=== PATIENT | female | born 1985 ===

== ENCOUNTER 2019-11-21 16:23 | Observation (INO) | payer BC ==
[2019-11-21] MEDS ORDERED: Sodium Chloride 0.9% 1,000 ML IV ONE ×2 (16:40→19:12)
--- NOTE | 2019-11-21 16:57 | EDM.PDOC ---
ED HPI GENERAL MEDICAL PROBLEM - General Chief Complaint: Genitourinary Problem Stated Complaint: POSSIBLE UTI Time Seen by Provider: 11/21/19 16:24 Source of Information: Reports: Patient History Limitations: Reports: No Limitations - History of Present Illness INITIAL COMMENTS - FREE TEXT/NARRATIVE: HISTORY AND PHYSICAL: History of present illness: Patient is a 34-year-old female who presents to the emergency room today with complaints of dysuria, weakness, malaise and noticing that her eyes were jaundiced this morning. Patient states she has had UTI-like symptoms for over a week and had seen Dr. Roldan last Tuesday for UA/STD testing. Initially her urine showed no infection but the culture did recommend that she be placed on antibiotics. She was started on Macrobid and is currently taking this antibiotic, but does not feel like she is improving as expected. Her STD screening was negative (per patient). Since Tuesday (4 days since starting the abx) she has felt generalized weakness, feeling like she could pass out, generalized abdominal bloating, and fatigue. This morning while applying her make-up she noticed her sclera were jaundiced bilaterally. She does recall having elevated LFTs approximately 3 to 5 years ago, at that time they were concerned it might be related to her gallbladder. She does remember getting a HIDA scan and this had eventually resolved on its own. She states she does drink occasionally but not on a daily basis, most recently was this last when she had gone to a [employer] [place]. Patient denies any f ever, chills, headache, change in vision, syncope or near syncope. Denies any chest pain, back pain, shortness of breath or cough. Denies any nausea, vomiting, diarrhea, constipation, or chance of . Patient has been eating and drinking appropriately. Review of systems: As per history of present illness and below otherwise all systems reviewed and negative. Past medical history: As per history of present illness and as reviewed below otherwise noncontributory. Surgical history: As per history of present illness and as reviewed below otherwise noncontributory. Social history: See social history for further information Family history: As per history of present illness and as reviewed below otherwise noncontributory. Physical exam: General: Well-developed and well-nourished 34-year-old female. Alert and oriented. Nontoxic-appearing and in no acute distress. HEENT: Atraumatic, normocephalic, pupils equal and reactive bilaterally, negative for conjunctival pallor, + bilateral scleral icterus, mucous membranes moist, TMs normal bilaterally, throat clear, neck supple, nontender, trachea midline. No drooling or trismus noted. No meningeal signs. No hot potato voice noted. Lungs: Clear to auscultation, breath sounds equal bilaterally, chest nontender. Heart: S1S2, regular rate and rhythm without overt murmur Abdomen: Soft, mildly distended, epigastric tenderness. Negative for masses or costovertebral tenderness. Pelvis: Stable nontender. Skin: Intact, warm, dry. No lesions or rashes noted. Extremities: Atraumatic, moves all extremities per self without difficulty or deficits, negative for cords or calf pain. Neurovascular unremarkable. Neuro: Awake, alert, oriented. Cranial nerves II through XII unremarkable. Cerebellum unremarkable. Motor and sensory unremarkable throughout. Exam nonfocal. Notes: Patient's total bili is 5.0, she did have one approximately a year ago which was 1.6. Her AST and ALT are slightly elevated. Normal amylase and lipase. No white count at this time. Did do a CT of her abdomen and pelvis which shows a fatty infiltration within the liver, generous in size. Spleen shows a low- density lesion which is compatible with a small cyst. Gallbladder is unremarkable. No acute findings are noted. I did call the hospitalist, Dr Shipley, who is agreeable to accepting this patient for further care and management. We did discuss possibly doing an MRCP tomorrow. Patient was made aware of diagnostic findings and the need for further evaluation. She is agreeable to admission. Diagnostics: CBC, CMP, UA, HCGU, [place], CT abd/pelvis, Hepatitis panel, lipase, amylase Therapeutics: IV fluids, Rocephin Impression: Hyperbilirubinemia, unknown etiology UTI Plan: Observation admission. Definitive disposition and diagnosis as appropriate pending reevaluation and review of above. - Related Data Allergies Allergy/AdvReac Type Severity Reaction Status Date / Time No Known Allergies Allergy Verified 11/21/19 16:32 Home Meds: Home Meds Sertraline [Zoloft] 100 mg PO BEDTIME 10/15/14 [History] L.acidoph,Paracasei, B.lactis [Probiotic] 1 cap PO DAILY 11/21/19 [History] Multivitamin [Multivitamins] 1 tab PO DAILY 11/21/19 [History] Omeprazole Magnesium [Prilosec Otc] 1 tab PO DAILY 11/21/19 [History] Past Medical History [employer] History: Reports: Psychiatric History: Reports: Anxiety, Depression - Past Surgical History HEENT Surgical History: Reports: Oral Surgery Other HEENT Surgeries/Procedures: sinus surgery Social & Family History - Family History Family Medical History: Noncontributory - Tobacco Use Smoking Status *Q: Never Smoker - Recreational Drug Use Recreational Drug Use: No ED ROS GENERAL - Review of Systems Review Of Systems: Comprehensive ROS is negative, except as noted in HPI. ED EXAM, RENAL/ - Physical Exam Exam: See Below (See dictation) Course - Vital Signs Last Recorded V/S: Last Vital Signs Temp 97.2 F 11/21/19 16:29 Pulse 74 11/21/19 18:49 Resp 16 11/21/19 18:49 BP 111/77 11/21/19 18:49 Pulse Ox 96 11/21/19 18:49 - Orders/Labs/Meds Orders: Active Orders 24 hr Category Date Time Status Admission Status [Patient Status] [ADT] Stat ADT 11/21/19 19:09 Ordered CULTURE URINE [RM] Stat Lab 11/21/19 16:41 Received HEPATITIS PANEL (4) [REF] Stat Lab 11/21/19 17:42 Received Labs: Laboratory Tests 11/21/19 11/21/19 11/21/19 Range/Units 16:41 16:41 17:00 WBC 4.49 (4.0-11.0) K/uL RBC 3.51 L (4.30-5.90) M/uL Hgb 11.9 L (12.0-16.0) g/dL Hct 35.9 L (36.0-46.0) % MCV 102.3 H (80.0-98.0) fL MCH 33.9 H (27.0-32.0) pg MCHC 33.1 (31.0-37.0) g/dL RDW Std Deviation 45.2 (28.0-62.0) fl RDW Coeff of Lulu 12 (11.0-15.0) % Plt Count 212 (150-400) K/uL MPV 9.60 (7.40-12.00) fL Neut % (Auto) 48.7 (48.0-80.0) % Lymph % (Auto) 29.0 (16.0-40.0) % [place] % (Auto) 7.6 (0.0-15.0) % Eos % (Auto) 14.3 H (0.0-7.0) % Baso % (Auto) 0.4 (0.0-1.5) % Neut # (Auto) 2.2 (1.4-5.7) K/uL Lymph # (Auto) 1.3 (0.6-2.4) K/uL [place] # (Auto) 0.3 (0.0-0.8) K/uL Eos # (Auto) 0.6 (0.0-0.7) K/uL Baso # (Auto) 0.0 (0.0-0.1) K/uL Nucleated RBC % 0.0 /100WBC Nucleated RBCs # 0 K/uL Sodium (136-145) mmol/L Potassium (3.5-5.1) mmol/L Chloride (98-107) mmol/L Carbon Dioxide (21.0-32.0) mmol/L BUN (7.0-18.0) mg/dL Creatinine (0.6-1.0) mg/dL Est Cr Clr Drug Dosing mL/min Estimated GFR (MDRD) ml/min Glucose (74-106) mg/dL Calcium (8.5-10.1) mg/dL Total Bilirubin (0.2-1.0) mg/dL AST (15-37) IU/L ALT (14-63) IU/L Alkaline Phosphatase (46-116) U/L Total Protein (6.4-8.2) g/dL Albumin (3.4-5.0) g/dL Globulin (2.6-4.0) g/dL Albumin/Globulin Ratio (0.9-1.6) Amylase (25-115) U/L Lipase (73-393) U/L Urine Color YELLOW Urine Appearance CLEAR Urine pH 6.0 (5.0-8.0) Ur Specific [place] 1.025 (1.001-1.035) Urine Protein NEGATIVE (NEGATIVE) mg/dL Urine Glucose (UA) NEGATIVE (NEGATIVE) mg/dL Urine Ketones NEGATIVE (NEGATIVE) mg/dL Urine Occult Blood NEGATIVE (NEGATIVE) Urine Nitrite NEGATIVE (NEGATIVE) Urine Bilirubin MODERATE H (NEGATIVE) Urine Ictotest POSITIVE Urine Urobilinogen 1.0 (<2.0) EU/dL Ur Leukocyte Esterase SMALL H (NEGATIVE) Urine RBC 0-2 (0-2/HPF) Urine WBC 1-3 (0-5/HPF) Ur Epithelial Cells FEW (NONE-FEW) Urine Bacteria FEW (NEGATIVE) Urine HCG, Qual NEGATIVE (NEGATIVE) Monoscreen (NEG) 11/21/19 11/21/19 11/21/19 Range/Units 17:00 17:00 17:42 WBC (4.0-11.0) K/uL RBC (4.30-5.90) M/uL Hgb (12.0-16.0) g/dL Hct (36.0-46.0) % MCV (80.0-98.0) fL MCH (27.0-32.0) pg MCHC (31.0-37.0) g/dL RDW Std Deviation (28.0-62.0) fl RDW Coeff of Lulu (11.0-15.0) % Plt Count (150-400) K/uL MPV (7.40-12.00) fL Neut % (Auto) (48.0-80.0) % Lymph % (Auto) (16.0-40.0) % [place] % (Auto) (0.0-15.0) % Eos % (Auto) (0.0-7.0) % Baso % (Auto) (0.0-1.5) % Neut # (Auto) (1.4-5.7) K/uL Lymph # (Auto) (0.6-2.4) K/uL [place] # (Auto) (0.0-0.8) K/uL Eos # (Auto) (0.0-0.7) K/uL Baso # (Auto) (0.0-0.1) K/uL Nucleated RBC % /100WBC Nucleated RBCs # K/uL Sodium 137 (136-145) mmol/L Potassium 4.0 (3.5-5.1) mmol/L Chloride 103 (98-107) mmol/L Carbon Dioxide 23.1 (21.0-32.0) mmol/L BUN 12 (7.0-18.0) mg/dL Creatinine 0.8 (0.6-1.0) mg/dL Est Cr Clr Drug Dosing 81.19 mL/min Estimated GFR (MDRD) > 60.0 ml/min Glucose 126 H (74-106) mg/dL Calcium 8.5 (8.5-10.1) mg/dL Total Bilirubin 5.0 H (0.2-1.0) mg/dL AST 66 H (15-37) IU/L ALT 143 H (14-63) IU/L Alkaline Phosphatase 168 H (46-116) U/L Total Protein 7.5 (6.4-8.2) g/dL Albumin 3.8 (3.4-5.0) g/dL Globulin 3.7 (2.6-4.0) g/dL Albumin/Globulin Ratio 1.0 (0.9-1.6) Amylase 52 (25-115) U/L Lipase 122 (73-393) U/L Urine Color Urine Appearance Urine pH (5.0-8.0) Ur Specific [place] (1.001-1.035) Urine Protein (NEGATIVE) mg/dL Urine Glucose (UA) (NEGATIVE) mg/dL Urine Ketones (NEGATIVE) mg/dL Urine Occult Blood (NEGATIVE) Urine Nitrite (NEGATIVE) Urine Bilirubin (NEGATIVE) Urine Ictotest Urine Urobilinogen (<2.0) EU/dL Ur Leukocyte Esterase (NEGATIVE) Urine RBC (0-2/HPF) Urine WBC (0-5/HPF) Ur Epithelial Cells (NONE-FEW) Urine Bacteria (NEGATIVE) Urine HCG, Qual (NEGATIVE) Monoscreen NEGATIVE (NEG) Meds: Medications Discontinued Medications Generic Name Dose Route Start Last Admin Trade Name Freq PRN Reason Stop Dose Admin Sodium Chloride 1,000 mls @ 999 mls/hr 11/21/19 16:40 11/21/19 16:57 Normal Saline IV 11/21/19 17:40 999 mls/hr STAT ONE Administration Iopamidol 100 ml 11/21/19 18:29 11/21/19 18:30 Isovue-370 (76%) IVPUSH 11/21/19 18:30 100 ml ONETIME STA Administration Departure - Departure Time of Disposition: 19:11 Disposition: Refer to Observation Clinical Impression: Hyperbilirubinemia UTI (urinary tract infection) Qualifiers: Urinary tract infection type: site unspecified Hematuria presence: without hematuria Qualified Code(s): N39.0 - Urinary tract infection, site not specified - Discharge Information Referrals: Pau Roldan MD [Primary Care Provider] - Forms: ED Department Discharge Sepsis Event Note (ED) - Evaluation Sepsis Screening Result: No Definite Risk - Focused Exam Vital Signs: Vital Signs Temp Pulse Resp BP Pulse Ox 11/21/19 18:49 74 16 111/77 96 11/21/19 16:29 97.2 F 82 16 120/80 96 - My Orders Last 24 Hours: My Active Orders 11/21/19 16:41 CULTURE URINE [RM] Stat 11/21/19 17:42 HEPATITIS PANEL (4) [REF] Stat 11/21/19 19:09 Admission Status [Patient Status] [ADT] Stat - Assessment/Plan Last 24 Hours: My Active Orders 11/21/19 16:41 CULTURE URINE [RM] Stat 11/21/19 17:42 HEPATITIS PANEL (4) [REF] Stat 11/21/19 19:09 Admission Status [Patient Status] [ADT] Stat
[2019-11-21 17:28] LABS: BLOOD UREA NITROGEN,BUN 12 mg/dL (7.0-18.0); CARBON DIOXIDE,CO2 23.1 mmol/L (21.0-32.0); CHLORIDE,CL 103 mmol/L (98-107); GLUCOSE RANDOM 126 mg/dL (74-106); SODIUM,NA 137 mmol/L (136-145)
[2019-11-21] MEDS ORDERED: Iopamidol 755 Mg/ML 100 ML Bottle IVPUSH STA (18:29)
[2019-11-21 18:38] LABS: LIPASE 122 U/L (73-393)
--- NOTE | 2019-11-21 18:57 | CT ---
CT abdomen and pelvis Technique: Multiple axial sections were obtained from above the dome of the diaphragm inferiorly to the pubic symphysis. Intravenous contrast was utilized. No oral contrast has been given. Findings: Visualized lung bases show nothing acute. Liver shows diffuse fatty infiltration. Liver is also generous in size. Spleen shows a low density lesion which is felt compatible with small cyst. Spleen size is normal. Adrenal glands show no nodule. Pancreas is within normal limits. Gallbladder contains no calcified gallstones. Kidneys show symmetric contrast enhancement without hydronephrosis. Small cyst is noted within the right kidney measuring 7 mm. Aorta shows no aneurysm. No retroperitoneal adenopathy is seen. No mesenteric abnormalities are noted. Small fat-containing umbilical hernia is noted. Appendix is seen and is normal in size. No pelvic mass or adenopathy is seen. IUD is present within the uterus. No free fluid or inflammatory change is seen. Bone window settings were reviewed which show no acute osseous finding. Impression: 1. Fatty infiltration within the liver. Liver is also generous in size. Other findings as noted above. 2. No acute abnormality is appreciated. Diagnostic code #2 Study was dictated in MDT
[2019-11-21] MEDS ORDERED: cefTRIAXone 1 GM in Premix Bag 1 BAG IV ONE (19:12)
[2019-11-21] MEDS ORDERED: Morphine 2 MG/ML Syringe IVPUSH PRN (20:52)
[2019-11-21] MEDS ORDERED: Ondansetron 4 MG/2 ML SDV IVPUSH PRN (20:52)
[2019-11-21] MEDS ORDERED: Albuterol/Ipratropium 3.0-0.5 MG/3 ML Neb Soln NEB PRN (20:54)
[2019-11-21] MEDS ORDERED: Lactated Ringers 1,000 ML IV SCH (21:00)
--- NOTE | 2019-11-21 21:03 | PCM.HP.2 ---
H&P History of Present Illness - General Date of Service: 11/21/19 Admit Problem/Dx: Admission Diagnosis/Problem Admission Diagnosis/Problem Hyperbilirubinemia - History of Present Illness Initial Comments - Free Text/Narative: Patient is a 34-year-old female with PMH of remote h/o liver dysfunction, obesity who presents to the emergency room today with complaints of mild dysuria, weakness, malaise and noticing that her eyes were jaundiced when she was applying make up this morning. Patient was treated for UTI by her OBGYN and started on Macrobid on Tuesday, states yesterday they called and changed her antibiotics based on cultures to Ampicillin. Her STD screening was negative (pe r patient). since starting her antibiotics she felt generalized weakness, generalized abdominal bloating, and fatigue. She does recall having elevated LFTs approximately 3 to 5 years ago, at that time they were concerned it might be related to her gallbladder. She does remember getting a HIDA scan and this had eventually resolved on its own. She states she does drink occasionally but not on a daily basis, most recently was this last weekend when she had gone to a [employer] republic[place], when she drank more than her usual but "nothing crazy", c/o vague chest pressure, but Patient denies any fever, chills, headache, change in vision, syncope or near syncope. denied back pain, shortness of breath or cough. Denies any nausea, vomiting, diarrhea, constipation, or chance of . Patient has been eating and drinking appropriately. In the ER patient was found to have elevated liver enzymes, CT scan of the abdomen showed hepatomegaly and fatty infiltration of liver. Dr Wilson was consulted by ER, recommended possible MRCP in AM, medical management for now. Patient was admitted to hospital for further care. 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: Psychiatric History: Reports: Anxiety, Depression - Infectious Disease History Infectious Disease History: Reports: Chicken Pox - Past Surgical History HEENT Surgical History: Reports: Oral Surgery Other HEENT Surgeries/Procedures: sinus surgery Social & Family History - Family History Family Medical History: Noncontributory - Tobacco Use Smoking Status *Q: Never Smoker Second Hand Smoke Exposure: No - Caffeine Use Caffeine Use: Reports: Other Other Caffeine Use: Diet Coke - Alcohol Use Number of Drinks Per Day: 6 Date of Last Drink: 11/17/19 - Recreational Drug Use Recreational Drug Use: No H&P Review of Systems - Review of Systems: Review Of Systems: See Below General: Reports: Malaise, Weakness, Fatigue. Denies: Fever, Chills HEENT: Denies: Dysphasia, Ear Pain Pulmonary: Denies: Shortness of Breath, Wheezing, Pleuritic Chest Pain Cardiovascular: Denies: Chest Pain, Palpitations, Dyspnea on Exertion, Edema, Lightheadedness, Syncope Gastrointestinal: Reports: Anorexia, Decreased Appetite, Nausea. Denies: Abdominal Pain, Black Stool, Bloody Stool, Constipation, Diarrhea Genitourinary: Reports: Dysuria, Urgency. Denies: Burning, Pain Musculoskeletal: Denies: Neck Pain, Shoulder Pain, Arm Pain Exam - Exam Exam: See Below - Vital Signs Vital Signs: Last Vital Signs Temp 36.9 C 11/21/19 20:05 Pulse 73 11/21/19 20:05 Resp 16 11/21/19 20:05 BP 140/83 11/21/19 20:05 Pulse Ox 97 11/21/19 20:05 Weight: 80.3 kg - Exam General: Alert, Oriented, Cooperative HEENT: Mucosa Moist & Jeannette, Nares Patent, Scleral Icterus. No: Conjunctiva Clear, Abnormal Pupils, Rhinitis, Glasses Neck: Supple, Trachea Midline Lungs: Clear to Auscultation, Normal Respiratory Effort Cardiovascular: Regular Rate, Regular Rhythm, Normal S1, Normal S2 GI/Abdominal Exam: Normal Bowel Sounds, Soft, Hepatomegaly. No: Tender, Abnormal Bowel Sounds, Splenomegaly - Patient Data Lab Results Last 24 hrs: Laboratory Results - last 24 hr 11/21/19 11/21/19 11/21/19 Range/Units 16:41 16:41 17:00 WBC 4.49 (4.0-11.0) K/uL RBC 3.51 L (4.30-5.90) M/uL Hgb 11.9 L (12.0-16.0) g/dL Hct 35.9 L (36.0-46.0) % MCV 102.3 H (80.0-98.0) fL MCH 33.9 H (27.0-32.0) pg MCHC 33.1 (31.0-37.0) g/dL RDW Std Deviation 45.2 (28.0-62.0) fl RDW Coeff of Lulu 12 (11.0-15.0) % Plt Count 212 (150-400) K/uL MPV 9.60 (7.40-12.00) fL Neut % (Auto) 48.7 (48.0-80.0) % Lymph % (Auto) 29.0 (16.0-40.0) % [place] % (Auto) 7.6 (0.0-15.0) % Eos % (Auto) 14.3 H (0.0-7.0) % Baso % (Auto) 0.4 (0.0-1.5) % Neut # (Auto) 2.2 (1.4-5.7) K/uL Lymph # (Auto) 1.3 (0.6-2.4) K/uL [place] # (Auto) 0.3 (0.0-0.8) K/uL Eos # (Auto) 0.6 (0.0-0.7) K/uL Baso # (Auto) 0.0 (0.0-0.1) K/uL Nucleated RBC % 0.0 /100WBC Nucleated RBCs # 0 K/uL Sodium (136-145) mmol/L Potassium (3.5-5.1) mmol/L Chloride (98-107) mmol/L Carbon Dioxide (21.0-32.0) mmol/L BUN (7.0-18.0) mg/dL Creatinine (0.6-1.0) mg/dL Est Cr Clr Drug Dosing mL/min Estimated GFR (MDRD) ml/min Glucose (74-106) mg/dL Calcium (8.5-10.1) mg/dL Total Bilirubin (0.2-1.0) mg/dL AST (15-37) IU/L ALT (14-63) IU/L Alkaline Phosphatase (46-116) U/L Total Protein (6.4-8.2) g/dL Albumin (3.4-5.0) g/dL Globulin (2.6-4.0) g/dL Albumin/Globulin Ratio (0.9-1.6) Amylase (25-115) U/L Lipase (73-393) U/L Urine Color YELLOW Urine Appearance CLEAR Urine pH 6.0 (5.0-8.0) Ur Specific [place] 1.025 (1.001-1.035) Urine Protein NEGATIVE (NEGATIVE) mg/dL Urine Glucose (UA) NEGATIVE (NEGATIVE) mg/dL Urine Ketones NEGATIVE (NEGATIVE) mg/dL Urine Occult Blood NEGATIVE (NEGATIVE) Urine Nitrite NEGATIVE (NEGATIVE) Urine Bilirubin MODERATE H (NEGATIVE) Urine Ictotest POSITIVE Urine Urobilinogen 1.0 (<2.0) EU/dL Ur Leukocyte Esterase SMALL H (NEGATIVE) Urine RBC 0-2 (0-2/HPF) Urine WBC 1-3 (0-5/HPF) Ur Epithelial Cells FEW (NONE-FEW) Urine Bacteria FEW (NEGATIVE) Urine HCG, Qual NEGATIVE (NEGATIVE) Monoscreen (NEG) 11/21/19 11/21/19 11/21/19 Range/Units 17:00 17:00 17:42 WBC (4.0-11.0) K/uL RBC (4.30-5.90) M/uL Hgb (12.0-16.0) g/dL Hct (36.0-46.0) % MCV (80.0-98.0) fL MCH (27.0-32.0) pg MCHC (31.0-37.0) g/dL RDW Std Deviation (28.0-62.0) fl RDW Coeff of Lulu (11.0-15.0) % Plt Count (150-400) K/uL MPV (7.40-12.00) fL Neut % (Auto) (48.0-80.0) % Lymph % (Auto) (16.0-40.0) % [place] % (Auto) (0.0-15.0) % Eos % (Auto) (0.0-7.0) % Baso % (Auto) (0.0-1.5) % Neut # (Auto) (1.4-5.7) K/uL Lymph # (Auto) (0.6-2.4) K/uL [place] # (Auto) (0.0-0.8) K/uL Eos # (Auto) (0.0-0.7) K/uL Baso # (Auto) (0.0-0.1) K/uL Nucleated RBC % /100WBC Nucleated RBCs # K/uL Sodium 137 (136-145) mmol/L Potassium 4.0 (3.5-5.1) mmol/L Chloride 103 (98-107) mmol/L Carbon Dioxide 23.1 (21.0-32.0) mmol/L BUN 12 (7.0-18.0) mg/dL Creatinine 0.8 (0.6-1.0) mg/dL Est Cr Clr Drug Dosing 81.19 mL/min Estimated GFR (MDRD) > 60.0 ml/min Glucose 126 H (74-106) mg/dL Calcium 8.5 (8.5-10.1) mg/dL Total Bilirubin 5.0 H (0.2-1.0) mg/dL AST 66 H (15-37) IU/L ALT 143 H (14-63) IU/L Alkaline Phosphatase 168 H (46-116) U/L Total Protein 7.5 (6.4-8.2) g/dL Albumin 3.8 (3.4-5.0) g/dL Globulin 3.7 (2.6-4.0) g/dL Albumin/Globulin Ratio 1.0 (0.9-1.6) Amylase 52 (25-115) U/L Lipase 122 (73-393) U/L Urine Color Urine Appearance Urine pH (5.0-8.0) Ur Specific [place] (1.001-1.035) Urine Protein (NEGATIVE) mg/dL Urine Glucose (UA) (NEGATIVE) mg/dL Urine Ketones (NEGATIVE) mg/dL Urine Occult Blood (NEGATIVE) Urine Nitrite (NEGATIVE) Urine Bilirubin (NEGATIVE) Urine Ictotest Urine Urobilinogen (<2.0) EU/dL Ur Leukocyte Esterase (NEGATIVE) Urine RBC (0-2/HPF) Urine WBC (0-5/HPF) Ur Epithelial Cells (NONE-FEW) Urine Bacteria (NEGATIVE) Urine HCG, Qual (NEGATIVE) Monoscreen NEGATIVE (NEG) Result Diagrams: 11/21/19 17:00 11/21/19 17:00 Sepsis Event Note - Evaluation Sepsis Screening Result: No Definite Risk - Focused Exam Vital Signs: Vital Signs Temp Pulse Resp BP Pulse Ox 11/21/19 20:05 36.9 C 73 16 140/83 97 11/21/19 19:41 36.2 C 76 18 117/70 98 11/21/19 18:49 74 16 111/77 96 11/21/19 16:29 36.2 C 82 16 120/80 96 Date Exam was Performed: 11/21/19 Time Exam was Performed: 21:40 - Problem List (1) Hyperbilirubinemia SNOMED Code(s): 14056632 ICD Code: E80.6 - OTHER DISORDERS OF BILIRUBIN METABOLISM Status: Acute Current Visit: Yes (2) UTI (urinary tract infection) SNOMED Code(s): 74712681 ICD Code: N39.0 - URINARY TRACT INFECTION, SITE NOT SPECIFIED Status: Acute Current Visit: Yes Qualifiers: Urinary tract infection type: site unspecified Hematuria presence: without hematuria Qualified Code(s): N39.0 - Urinary tract infection, site not specified Problem List Initiated/Reviewed/Updated: Yes Orders Last 24hrs: Active Orders 24 hr Category Date Time Status Admission Status [Patient Status] [ADT] Stat ADT 11/21/19 19:09 Active Ambulate [RC] ASDIRECTED Care 11/21/19 20:52 Active Antiembolic Devices [RC] PER UNIT ROUTINE Care 11/21/19 20:53 Active Oxygen Therapy [RC] PRN Care 11/21/19 20:52 Active Pulse Oximetry [RC] PRN Care 11/21/19 20:53 Active RT Aerosol Therapy [RC] ASDIRECTED Care 11/21/19 20:55 Active VTE/DVT Education [RC] PER UNIT ROUTINE Care 11/21/19 20:52 Active Vital Signs [RC] Q4H Care 11/21/19 20:54 Active Clear Liquid Diet [DIET] Diet 11/21/19 Dinner Active CBC WITH AUTO DIFF [HEME] AM Lab 11/22/19 05:11 Ordered CMP [COMPREHENSIVE METABOLIC PN,CMP] [CHEM] AM Lab 11/22/19 05:11 Ordered CULTURE URINE [RM] Stat Lab 11/21/19 16:41 Received HEPATITIS PANEL (4) [REF] Stat Lab 11/21/19 17:42 Received MAGNESIUM [CHEM] AM Lab 11/22/19 05:11 Ordered PHOSPHORUS [CHEM] AM Lab 11/22/19 05:11 Ordered TROPONIN I [CHEM] Stat Lab 11/21/19 20:54 Ordered Albuterol/Ipratropium [DuoNeb 3.0-0.5 MG/3 ML] Med 11/21/19 20:54 Ordered 3 ml NEB Q4HRRT PRN LORazepam [Ativan] Med 11/21/19 22:00 Once 0.5 mg IM ONETIME ONE Lactated Ringers [Ringers, Lactated] 1,000 ml Med 11/21/19 21:00 Ordered IV ASDIRECTED Morphine Med 11/21/19 20:52 Ordered 1 mg IVPUSH Q4H PRN Ondansetron [Zofran] Med 11/21/19 20:52 Ordered 4 mg IVPUSH Q4H PRN Pantoprazole [ProTONIX IV] 40 mg Med 11/21/19 21:15 Ordered Sodium Chloride 0.9% [Normal Saline] 10 ml IV DAILY Sertraline [Zoloft] Med 11/22/19 21:00 Ordered 100 mg PO BEDTIME Sodium Chloride 0.9% [Normal Saline] 1,000 ml Med 11/21/19 19:12 Active IV STAT Sequential Compression Device [OM.PC] Per Unit Routine Oth 11/21/19 20:53 Ordered Resuscitation Status Routine Resus Stat 11/21/19 20:52 Ordered Medication Orders Albuterol/Ipratropium (Duoneb 3.0-0.5 Mg/3 Ml) 3 ml NEB Q4HRRT PRN PRN Reason: Shortness Of Breath/wheezing Sodium Chloride (Normal Saline) 1,000 mls @ 125 mls/hr IV STAT ONE Stop: 11/22/19 03:11 Last Admin: 11/21/19 19:43 Dose: 125 mls/hr Documented by: MARCO A Lactated Ringer's (Ringers, Lactated) 1,000 mls @ 125 mls/hr IV ASDIRECTED STEFFEN Pantoprazole Sodium 40 mg/ (Sodium Chloride) 10 mls @ 300 mls/hr IV DAILY [facility] Lorazepam (Ativan) 0.5 mg IM ONETIME ONE Stop: 11/21/19 22:01 Morphine Sulfate (Morphine) 1 mg IVPUSH Q4H PRN PRN Reason: Pain (severe 7-10) Stop: 11/22/19 20:53 Ondansetron HCl (Zofran) 4 mg IVPUSH Q4H PRN PRN Reason: Nausea/Vomiting Sertraline HCl (Zoloft) 100 mg PO BEDTIME [facility] Assessment/Plan Comment:: A/P: Patient is a 34 y/o F admitted for deranged liver enzymes with elevated total bilirubin, possible adverse rxn to antibiotics vs fatty liver vs autoimmune process CT scan abdomen was done which showed no stones, but fatty liver infiltration Will admit to med-surg Start IV fluids IV Rocephin for UTI, hold oral antibiotics Avoid any hepato-toxic drugs Will obtain US liver to r/o GB stones Possible MRCP tomorrow if LFTs dont improve Trned LFTs daily Clesr diet for now Zofran and IV PPI f/u on troponin f/u on hepatitus panel
[2019-11-21] MEDS: Pantoprazole 40 MG in Sodium Chloride 0.9% 10 ML IV SCH (21:33)
[2019-11-21] MEDS ORDERED: LORazepam 2 MG/ML SDV IM ONE (22:00)
[2019-11-22 05:53] LABS: BLOOD UREA NITROGEN,BUN 8 mg/dL (7.0-18.0); CARBON DIOXIDE,CO2 21.3 mmol/L (21.0-32.0); CHLORIDE,CL 106 mmol/L (98-107); GLUCOSE RANDOM 109 mg/dL (74-106); POTASSIUM,K 4.1 mmol/L (3.5-5.1); SODIUM,NA 137 mmol/L (136-145)
[2019-11-22] MEDS: Pantoprazole 40 MG in Sodium Chloride 0.9% 10 ML IV SCH (08:54)
[2019-11-22] MEDS ORDERED: cefTRIAXone 1 GM in Sodium Chloride 0.9% 50 ML IV SCH (09:00)
--- NOTE | 2019-11-22 09:16 | US ---
Limited right upper quadrant abdominal ultrasound: Multiple real-time images of the upper right abdomen were obtained. Comparison: Prior CT abdomen and pelvis study of 11/21/19. Liver is echogenic and enlarged. Right kidney shows no hydronephrosis or discrete mass. Right kidney measures 9.6 cm in length. Gallbladder contains no shadowing gallstones. No gallbladder wall thickening or biliary duct dilatation is seen. Visualized portions of the pancreas are unremarkable. Impression: 1. Liver is echogenic compatible with fatty infiltration. Liver is also enlarged. 2. No additional abnormality is appreciated on right upper quadrant abdominal ultrasound. Diagnostic code #3 Study was dictated in MDT
[2019-11-22 11:34] VITALS: BP 111/88; PULSE 74
--- NOTE | 2019-11-22 12:56 | MR ---
MRI abdomen Technique: Various sequences were obtained axial and coronal planes as well as MRCP study. Comparison: Prior CT abdomen and pelvis exam of 11/21/19 and abdominal ultrasound of the upper right abdomen dated earlier on the day of the MRI. Findings: Gallbladder shows no filling defects to indicate definite gallstones. Liver shows fatty infiltration. Small scattered cysts are seen within the spleen, the largest measures 9 mm. Adrenal glands are unremarkable. Pancreas shows no discrete abnormality. Liver contains no focal abnormality. MRCP study shows no dilatation of the CHD or CBD. Impression: 1. Fatty infiltration within the liver. 2. Small scattered cyst within the spleen which are most likely benign. 3. No additional abnormality is identified on MRI study of the abdomen. 4. MRCP study is unremarkable. Diagnostic code #2 Study was dictated in MDT
--- NOTE | 2019-11-22 13:29 | PCM.DCSUM1 ---
Discharge Summary - Hospital Course Brief History: Patient is a 34-year-old female with PMH of remote h/o liver dysfunction, obesity who presents to the emergency room today with complaints of mild dysuria, weakness, malaise and noticing that her eyes were jaundiced when she was applying make up this morning. Patient was treated for UTI by her OBGYN and started on Macrobid on Tuesday, states yesterday they called and changed her antibiotics based on cultures to Ampicillin. Her STD screening was negative (per patient). since starting her antibiotics she felt generalized weakness, generalized abdominal bloating, and fatigue. She does recall having elevated LFTs approximately 3 to 5 years ago, at that time they were concerned it might be related to her gallbladder. She does remember getting a HIDA scan and this had eventually resolved on its own. She states she does drink occasionally but not on a daily basis, most recently was this last weekend when she had gone to a [place], when she drank more than her usual but "nothing crazy", c/o vague chest pressure, but Patient denies any fever, chills, headache, change in vision, syncope or near syncope. denied back pain, shortness of breath or cough. Denies any nausea, vomiting, diarrhea, constipation, or chance of . Patient has been eating and drinking appropriately. In the ER patient was found to have elevated liver enzymes, CT scan of the abdomen showed hepatomegaly and fatty infiltration of liver. Dr Wilson was consulted by ER, recommended possible MRCP in AM, medical management for now. Patient was admitted to hospital for further care. Diagnosis: Stroke: No - Discharge Data Discharge Date: 11/22/19 Discharge Disposition: Home, Self-Care 01 Condition: Good - Referral to Home Health Primary Care Physician: Pau Roldan MD - Discharge Diagnosis/Problem(s) (1) Transaminitis SNOMED Code(s): 867325277, 144495404 ICD Code: R74.0 - NONSPEC ELEV OF LEVELS OF TRANSAMNS & LACTIC ACID DEHYDRGNSE Status: Acute Current Visit: Yes (2) Hyperbilirubinemia SNOMED Code(s): 61225859 ICD Code: E80.6 - OTHER DISORDERS OF BILIRUBIN METABOLISM Status: Acute Current Visit: Yes - Patient Summary/Data Hospital Course: Admitting Diagnoses: Hyperbilirubinemia Transaminitis Discharge Diagnoses: Hyperbilirubinemia Transaminitis Other pmh: UTI- tx as outpatient Depression Obesity Melida was admitted due to hyperbilirubinemia and transaminitis. She was recently started on Macrobid for UTI, then was switched when JILLIAN returned to Amoxicillin. She reports this weekend she started feeling generalized malaise and yesterday noticed yellowing of her eyes. She denies abdominal pain. Abdominal CT and RUQ US returned normal, no gallbladder wall thickening and no cholelithiasis. MRCP was recommended by general surgery. This was discussed with patient and her mother and they both felt like they wanted this done to help rule out further concerns. MRCP returned normal, no CHD or CBD duct dilatation. Hepatitis panel pending at discharge. Today bilirubin improved to 3.9 as well as AST/ALT improved. She is feeling improved. She is to stay hydrated, stay away from alcohol and refrain from using Tylenol. She was also counseled on listing Macrobid as allergy as this may be cause of hepatitis like symptoms. She is to return to the ED or clinic if concerns should arise after discharge. Referral sent to [facility] for further evaluation. Follow up with PCP in 1 week with repeat CMP to follow bilirubin. - Patient Instructions Diet: Regular Diet as Tolerated, Drink 8-10+ Glasses/Day Diet, Other: Stay away from alcohol Activity: As Tolerated Driving: May Drive Today Showering/Bathing: May Shower Notify Provider of: Fever, Increased Pain, Swelling and Redness, Drainage, Nausea and/or Vomiting Other/Special Instructions: Continue Amoxicillin from previous provider for UTI. Return to ED or clinic if concerns should arise or you start to notice yellowing of eyes or skin - Discharge Plan *PRESCRIPTION DRUG MONITORING PROGRAM REVIEWED*: Not Applicable *COPY OF PRESCRIPTION DRUG MONITORING REPORT IN PATIENT ABDIEL: Not Applicable Home Medications: Home Meds Sertraline [Zoloft] 100 mg PO BEDTIME 10/15/14 [History] L.acidoph,Paracasei, B.lactis [Probiotic] 1 cap PO DAILY 11/21/19 [History] Multivitamin [Multivitamins] 1 tab PO DAILY 11/21/19 [History] Omeprazole Magnesium [Prilosec Otc] 1 tab PO DAILY 11/21/19 [History] Oxygen Therapy Mode: Room Air Patient Handouts: Urinary Tract Infection, Adult, [id number] Referrals: Lashay Vasques PA [Physician Director Of Adult Epilepsy] - 11/29/19 1:30 pm (Please arrive 15 m inutes early.) - Discharge Summary/Plan Comment DC Time >30 min.: No - Patient Data Vitals - Most Recent: Last Vital Signs Temp 98.8 F 11/22/19 11:30 Pulse 74 11/22/19 11:30 Resp 17 11/22/19 11:30 BP 111/88 11/22/19 11:30 Pulse Ox 96 11/22/19 11:30 Weight - Most Recent: 80.3 kg I&O - Last 24 hours: Intake & Output 11/21/19 11/22/19 11/22/19 22:59 06:59 14:59 Intake Total 1321 10 Output Total 350 Balance 971 10 Lab Results - Last 24 hrs: Laboratory Results - last 24 hr 11/21/19 11/21/19 11/21/19 Range/Units 16:41 16:41 17:00 WBC 4.49 (4.0-11.0) K/uL RBC 3.51 L (4.30-5.90) M/uL Hgb 11.9 L (12.0-16.0) g/dL Hct 35.9 L (36.0-46.0) % MCV 102.3 H (80.0-98.0) fL MCH 33.9 H (27.0-32.0) pg MCHC 33.1 (31.0-37.0) g/dL RDW Std Deviation 45.2 (28.0-62.0) fl RDW Coeff of Lulu 12 (11.0-15.0) % Plt Count 212 (150-400) K/uL MPV 9.60 (7.40-12.00) fL Neut % (Auto) 48.7 (48.0-80.0) % Lymph % (Auto) 29.0 (16.0-40.0) % [place] % (Auto) 7.6 (0.0-15.0) % Eos % (Auto) 14.3 H (0.0-7.0) % Baso % (Auto) 0.4 (0.0-1.5) % Neut # (Auto) 2.2 (1.4-5.7) K/uL Lymph # (Auto) 1.3 (0.6-2.4) K/uL [place] # (Auto) 0.3 (0.0-0.8) K/uL Eos # (Auto) 0.6 (0.0-0.7) K/uL Baso # (Auto) 0.0 (0.0-0.1) K/uL Nucleated RBC % 0.0 /100WBC Nucleated RBCs # 0 K/uL Sodium (136-145) mmol/L Potassium (3.5-5.1) mmol/L Chloride (98-107) mmol/L Carbon Dioxide (21.0-32.0) mmol/L BUN (7.0-18.0) mg/dL Creatinine (0.6-1.0) mg/dL Est Cr Clr Drug Dosing mL/min Estimated GFR (MDRD) ml/min Glucose (74-106) mg/dL Calcium (8.5-10.1) mg/dL Phosphorus (2.6-4.7) mg/dL Magnesium (1.8-2.4) mg/dL Total Bilirubin (0.2-1.0) mg/dL AST (15-37) IU/L ALT (14-63) IU/L Alkaline Phosphatase (46-116) U/L Troponin I (0.000-0.056) ng/mL Total Protein (6.4-8.2) g/dL Albumin (3.4-5.0) g/dL Globulin (2.6-4.0) g/dL Albumin/Globulin Ratio (0.9-1.6) Triglycerides (0-200) mg/dL Cholesterol (50-200) mg/dL LDL Cholesterol, Calc (60-180) mg/dL VLDL Cholesterol (5-55) mg/dL HDL Cholesterol (40-60) mg/dL Cholesterol/HDL Ratio (3.3-6.0) Amylase (25-115) U/L Lipase (73-393) U/L Urine Color YELLOW Urine Appearance CLEAR Urine pH 6.0 (5.0-8.0) Ur Specific [place] 1.025 (1.001-1.035) Urine Protein NEGATIVE (NEGATIVE) mg/dL Urine Glucose (UA) NEGATIVE (NEGATIVE) mg/dL Urine Ketones NEGATIVE (NEGATIVE) mg/dL Urine Occult Blood NEGATIVE (NEGATIVE) Urine Nitrite NEGATIVE (NEGATIVE) Urine Bilirubin MODERATE H (NEGATIVE) Urine Ictotest POSITIVE Urine Urobilinogen 1.0 (<2.0) EU/dL Ur Leukocyte Esterase SMALL H (NEGATIVE) Urine RBC 0-2 (0-2/HPF) Urine WBC 1-3 (0-5/HPF) Ur Epithelial Cells FEW (NONE-FEW) Urine Bacteria FEW (NEGATIVE) Urine HCG, Qual NEGATIVE (NEGATIVE) Monoscreen (NEG) 11/21/19 11/21/19 11/21/19 Range/Units 17:00 17:00 17:42 WBC (4.0-11.0) K/uL RBC (4.30-5.90) M/uL Hgb (12.0-16.0) g/dL Hct (36.0-46.0) % MCV (80.0-98.0) fL MCH (27.0-32.0) pg MCHC (31.0-37.0) g/dL RDW Std Deviation (28.0-62.0) fl RDW Coeff of Lulu (11.0-15.0) % Plt Count (150-400) K/uL MPV (7.40-12.00) fL Neut % (Auto) (48.0-80.0) % Lymph % (Auto) (16.0-40.0) % [place] % (Auto) (0.0-15.0) % Eos % (Auto) (0.0-7.0) % Baso % (Auto) (0.0-1.5) % Neut # (Auto) (1.4-5.7) K/uL Lymph # (Auto) (0.6-2.4) K/uL [place] # (Auto) (0.0-0.8) K/uL Eos # (Auto) (0.0-0.7) K/uL Baso # (Auto) (0.0-0.1) K/uL Nucleated RBC % /100WBC Nucleated RBCs # K/uL Sodium 137 (136-145) mmol/L Potassium 4.0 (3.5-5.1) mmol/L Chloride 103 (98-107) mmol/L Carbon Dioxide 23.1 (21.0-32.0) mmol/L BUN 12 (7.0-18.0) mg/dL Creatinine 0.8 (0.6-1.0) mg/dL Est Cr Clr Drug Dosing 81.19 mL/min Estimated GFR (MDRD) > 60.0 ml/min Glucose 126 H (74-106) mg/dL Calcium 8.5 (8.5-10.1) mg/dL Phosphorus (2.6-4.7) mg/dL Magnesium (1.8-2.4) mg/dL Total Bilirubin 5.0 H (0.2-1.0) mg/dL AST 66 H (15-37) IU/L ALT 143 H (14-63) IU/L Alkaline Phosphatase 168 H (46-116) U/L Troponin I (0.000-0.056) ng/mL Total Protein 7.5 (6.4-8.2) g/dL Albumin 3.8 (3.4-5.0) g/dL Globulin 3.7 (2.6-4.0) g/dL Albumin/Globulin Ratio 1.0 (0.9-1.6) Triglycerides (0-200) mg/dL Cholesterol (50-200) mg/dL LDL Cholesterol, Calc (60-180) mg/dL VLDL Cholesterol (5-55) mg/dL HDL Cholesterol (40-60) mg/dL Cholesterol/HDL Ratio (3.3-6.0) Amylase 52 (25-115) U/L Lipase 122 (73-393) U/L Urine Color Urine Appearance Urine pH (5.0-8.0) Ur Specific [place] (1.001-1.035) Urine Protein (NEGATIVE) mg/dL Urine Glucose (UA) (NEGATIVE) mg/dL Urine Ketones (NEGATIVE) mg/dL Urine Occult Blood (NEGATIVE) Urine Nitrite (NEGATIVE) Urine Bilirubin (NEGATIVE) Urine Ictotest Urine Urobilinogen (<2.0) EU/dL Ur Leukocyte Esterase (NEGATIVE) Urine RBC (0-2/HPF) Urine WBC (0-5/HPF) Ur Epithelial Cells (NONE-FEW) Urine Bacteria (NEGATIVE) Urine HCG, Qual (NEGATIVE) Monoscreen NEGATIVE (NEG) 11/21/19 11/22/19 11/22/19 Range/Units 21:11 05:13 05:13 WBC 4.41 (4.0-11.0) K/uL RBC 3.16 L (4.30-5.90) M/uL Hgb 10.7 L (12.0-16.0) g/dL Hct 32.3 L (36.0-46.0) % MCV 102.2 H (80.0-98.0) fL MCH 33.9 H (27.0-32.0) pg MCHC 33.1 (31.0-37.0) g/dL RDW Std Deviation 45.4 (28.0-62.0) fl RDW Coeff of Lulu 12 (11.0-15.0) % Plt Count 182 (150-400) K/uL MPV 9.40 (7.40-12.00) fL Neut % (Auto) 40.1 L (48.0-80.0) % Lymph % (Auto) 36.3 (16.0-40.0) % [place] % (Auto) 10.4 (0.0-15.0) % Eos % (Auto) 12.7 H (0.0-7.0) % Baso % (Auto) 0.5 (0.0-1.5) % Neut # (Auto) 1.8 (1.4-5.7) K/uL Lymph # (Auto) 1.6 (0.6-2.4) K/uL [place] # (Auto) 0.5 (0.0-0.8) K/uL Eos # (Auto) 0.6 (0.0-0.7) K/uL Baso # (Auto) 0.0 (0.0-0.1) K/uL Nucleated RBC % 0.0 /100WBC Nucleated RBCs # 0 K/uL Sodium 137 (136-145) mmol/L Potassium 4.1 (3.5-5.1) mmol/L Chloride 106 (98-107) mmol/L Carbon Dioxide 21.3 (21.0-32.0) mmol/L BUN 8 (7.0-18.0) mg/dL Creatinine 0.8 (0.6-1.0) mg/dL Est Cr Clr Drug Dosing 81.19 mL/min Estimated GFR (MDRD) > 60.0 ml/min Glucose 109 H (74-106) mg/dL Calcium 8.1 L (8.5-10.1) mg/dL Phosphorus 3.6 (2.6-4.7) mg/dL Magnesium 1.7 L (1.8-2.4) mg/dL Total Bilirubin 3.9 H (0.2-1.0) mg/dL AST 58 H (15-37) IU/L ALT 126 H (14-63) IU/L Alkaline Phosphatase 136 H (46-116) U/L Troponin I < 0.050 (0.000-0.056) ng/mL Total Protein 6.3 L (6.4-8.2) g/dL Albumin 3.1 L (3.4-5.0) g/dL Globulin 3.2 (2.6-4.0) g/dL Albumin/Globulin Ratio 1.0 (0.9-1.6) Triglycerides 189 (0-200) mg/dL Cholesterol 148 (50-200) mg/dL LDL Cholesterol, Calc 95 (60-180) mg/dL VLDL Cholesterol 37 (5-55) mg/dL HDL Cholesterol 15 L (40-60) mg/dL Cholesterol/HDL Ratio 9.9 H (3.3-6.0) Amylase (25-115) U/L Lipase (73-393) U/L Urine Color Urine Appearance Urine pH (5.0-8.0) Ur Specific [place] (1.001-1.035) Urine Protein (NEGATIVE) mg/dL Urine Glucose (UA) (NEGATIVE) mg/dL Urine Ketones (NEGATIVE) mg/dL Urine Occult Blood (NEGATIVE) Urine Nitrite (NEGATIVE) Urine Bilirubin (NEGATIVE) Urine Ictotest Urine Urobilinogen (<2.0) EU/dL Ur Leukocyte Esterase (NEGATIVE) Urine RBC (0-2/HPF) Urine WBC (0-5/HPF) Ur Epithelial Cells (NONE-FEW) Urine Bacteria (NEGATIVE) Urine HCG, Qual (NEGATIVE) Monoscreen (NEG) JILLIAN Results - Last 24 hrs: Microbiology 11/21/19 16:41 Urine Culture - Preliminary Urine, Voided NO GROWTH AFTER 1 DAY Med Orders - Current: Current Medications Albuterol/Ipratropium (Duoneb 3.0-0.5 Mg/3 Ml) 3 ml NEB Q4HRRT PRN PRN Reason: Shortness Of Breath/wheezing Lactated Ringer's (Ringers, Lactated) 1,000 mls @ 125 mls/hr IV ASDIRECTED STEFFEN Last Admin: 11/22/19 04:19 Dose: 125 mls/hr Documented by: Pantoprazole Sodium 40 mg/ (Sodium Chloride) 10 mls @ 300 mls/hr IV DAILY [facility] Last Admin: 11/22/19 08:54 Dose: 300 mls/hr Documented by: Ceftriaxone Sodium/Dextrose 1 (gm/ Premix) 50 mls @ 100 mls/hr IV Q24H [facility] Morphine Sulfate (Morphine) 1 mg IVPUSH Q4H PRN PRN Reason: Pain (severe 7-10) Stop: 11/22/19 20:53 Ondansetron HCl (Zofran) 4 mg IVPUSH Q4H PRN PRN Reason: Nausea/Vomiting Sertraline HCl (Zoloft) 100 mg PO BEDTIME [facility] Discontinued Medications Sodium Chloride (Normal Saline) 1,000 mls @ 999 mls/hr IV STAT ONE Stop: 11/21/19 17:40 Last Admin: 11/21/19 16:57 Dose: 999 mls/hr Documented by: Sodium Chloride (Normal Saline) 1,000 mls @ 125 mls/hr IV STAT ONE Stop: 11/22/19 03:11 Last Admin: 11/21/19 19:43 Dose: 125 mls/hr Documented by: Ceftriaxone Sodium/Dextrose 1 (gm/ Premix) 50 mls @ 100 mls/hr IV ONETIME ONE Stop: 11/21/19 19:41 Last Admin: 11/21/19 19:43 Dose: 100 mls/hr Documented by: Ceftriaxone Sodium 1 gm/ (Sodium Chloride) 50 mls @ 100 mls/hr IV Q24H [facility] Iopamidol (Isovue-370 (76%)) 100 ml IVPUSH ONETIME STA Stop: 11/21/19 18:30 Last Admin: 11/21/19 18:30 Dose: 100 ml Documented by: Lorazepam (Ativan) 0.5 mg IM ONETIME ONE Stop: 11/21/19 22:01 Last Admin: 11/21/19 21:33 Dose: 0.5 mg Documented by: - Exam General: Reports: Alert, Oriented, Cooperative, No Acute Distress Lungs: Reports: Clear to Auscultation, Normal Respiratory Effort Cardiovascular: Reports: Regular Rate, Regular Rhythm GI/Abdominal Exam: Normal Bowel Sounds, Soft, Non-Tender Neurological: Reports: No New Focal Deficit Psy/Mental Status: Reports: Alert, Normal Affect, Normal Mood
[2019-11-22] MEDS ORDERED: cefTRIAXone 1 GM in Premix Bag 1 BAG IV SCH (20:00)
[2019-11-22] MEDS ORDERED: Sertraline 100 MG Tab PO SCH (21:00)
== END 2019-11-22 14:45 | disposition home or self-care (01) ==
LOC: MW.ED 16:23 → MW.MS 19:09
PROVIDERS: ADMIT Student in an Organized Health Care Education/Training Program; ATTEND Student in an Organized Health Care Education/Training Program
DX: E80.6 Other disorders of bilirubin metabolism (principal); N39.0 Urinary tract infection, site not specified; R74.0 Nonspecific elevation of levels of transaminase and lactic acid dehydrogenase [LDH]; F41.9 Anxiety disorder, unspecified; E66.9 Obesity, unspecified; F32.9 Major depressive disorder, single episode, unspecified; Z79.899 Other long term (current) drug therapy; Z68.29 Body mass index [BMI] 29.0-29.9, adult
CPT/HCPCS: 36415; 74177; 74181; 76705; 80053; 80061; 80074; 81001; 81025; 82150; 83690; 83735; 84100; 84484; 85025; 86308; 87086; 96360; 99285; C9113; J0696; J2060; J7030; J7050; J7120; Q9967; 99284

== ENCOUNTER 2019-12-07 13:34 | Emergency (ER) | payer BC ==
--- NOTE | 2019-12-07 13:36 | EDM.PDOC ---
ED HPI GENERAL MEDICAL PROBLEM - General Chief Complaint: Laceration Stated Complaint: CUT ON FOOT Time Seen by Provider: 12/07/19 13:35 Source of Information: Reports: Patient History Limitations: Reports: No Limitations - History of Present Illness INITIAL COMMENTS - FREE TEXT/NARRATIVE: 34-year-old female presents with laceration to her right foot. She was running across the lawn trying to turn off the sprinklers and cut her right foot on something embedded in the grass. Tetanus shot is unknown. Pain is mild, localized to the right lateral hindfoot. ROS: A 10-point review of systems, other than pertinent positives and negatives as stated per HPI, is otherwise negative PHYSICAL EXAM General: AOx4, GCS = 15, moderate distress HEENT: dry mucous membrane Neck: supple, no meningismus, no Kernig or Brudzinski Cardiac: S1S2 RRR Respiratory: CTAB, no crackles or rales, no wheezing Abdomen: Soft, nontender, no rebound or guarding, nondistended, no pulsatile mass. Back: nontender Musculoskeletal: NVI distally, 4 cm superficial laceration to the right lateral hindfoot, no active bleeding, no foreign body noted. Neuro: No focal deficits, CN 2 - 12 WNL. Right Foot Pain Score (Numeric/FACES): 6 - Related Data Allergies Allergy/AdvReac Type Severity Reaction Status Date / Time nitrofurantoin Allergy Jaundice Verified 12/07/19 14:03 Home Meds: Home Meds Sertraline [Zoloft] 100 mg PO BEDTIME 10/15/14 [History] L.acidoph,Paracasei, B.lactis [Probiotic] 1 cap PO DAILY 11/21/19 [History] Multivitamin [Multivitamins] 1 tab PO DAILY 11/21/19 [History] Omeprazole Magnesium [Prilosec Otc] 1 tab PO DAILY 11/21/19 [History] Naproxen [Naprosyn] 500 mg PO Q12HR #10 tab 12/07/19 [Rx] Past Medical History STAFF PSYCHOLOGIST History: Reports: Psychiatric History: Reports: Anxiety, Depression - Infectious Disease History Infectious Disease History: Reports: Chicken Pox - Past Surgical History HEENT Surgical History: Reports: Oral Surgery Other HEENT Surgeries/Procedures: sinus surgery Social & Family History - Family History Family Medical History: Noncontributory - Caffeine Use Caffeine Use: Reports: Other Other Caffeine Use: Diet Coke ED ROS GENERAL - Review of Systems Review Of Systems: Comprehensive ROS is negative, except as noted in HPI. ED EXAM, SKIN/RASH Exam: See Below ED SKIN PROCEDURES - Laceration/Wound Repair Right Lateral Foot Appearance: Superficial Distal NVT: Neuro & Vascular Intact, No Tendon Injury Skin Prep: Saline Exploration/Debridement/Repair: Wound Explored, In a Bloodless Field, Explored to Base, No Foreign Material Found, Wound Margins Revised, Multiple Flaps Aligned Closed with: Other (dermabond clips x 3) Lac/Wound length In cm: 4.0 Course - Vital Signs Last Recorded V/S: Last Vital Signs Temp 97.5 F 12/07/19 14:00 Pulse 77 12/07/19 14:00 Resp 16 12/07/19 14:00 BP 113/74 12/07/19 14:00 Pulse Ox 96 12/07/19 14:00 - Orders/Labs/Meds Orders: Active Orders 24 hr Category Date Time Status Communication Order [RC] STAT Care 12/07/19 15:37 Active Vaccines to be Administered [RC] PER UNIT ROUTINE Care 12/07/19 15:23 Active Meds: Medications Discontinued Medications Generic Name Dose Route Start Last Admin Trade Name Dariela PRN Reason Stop Dose Admin Diphtheria/Tetanus/Acell Pertussis 0.5 ml 12/07/19 15:23 12/07/19 15:36 Adacel IM 12/07/19 15:24 0.5 ml .ONCE ONE Administration - Re-Assessments/Exams Free Text/Narrative Re-Assessment/Exam: 12/07/19 15:47 After treatments and a prolonged observation period in the ER, the patient improved clinically and is stable for discharge. I performed a repeat examination and the patient has not demonstrated any new abnormal findings. Patient exhibits normal vital signs and has exhibited a normal gait with walking boot. Wound was dressed with loose dressing over the dermabond clips. I advised the patient to return to the ER for reevaluation if symptoms worsened, and to follow up with their PCP in 1 week. I gave her strict return precautions for fever, worsening pain, purulent drainage, redness around the laceration site. Departure - Departure Time of Disposition: 15:47 Disposition: Home, Self-Care 01 Condition: Good Clinical Impression: Foot laceration - Discharge Information *PRESCRIPTION DRUG MONITORING PROGRAM REVIEWED*: Not Applicable *COPY OF PRESCRIPTION DRUG MONITORING REPORT IN PATIENT ABDIEL: Not Applicable Prescriptions: Naproxen [Naprosyn] 500 mg PO Q12HR #10 tab Instructions: Sterile Tape Wound Care, Laceration Care, Adult Referrals: Niki Lenz, [facility] [Primary Care Provider] - Forms: ED Department Discharge Additional Instructions: The following information is given to patients seen in the emergency department who are being discharged to home. This information is to outline your options for follow-up care. We provide all patients seen in our emergency department with a follow-up referral. The need for follow-up, as well as the timing and circumstances, are variable depending upon the specifics of your emergency department visit. If you don't have a primary care physician on staff, we will provide you with a referral. We always advise you to contact your personal physician following an emergency department visit to inform them of the circumstance of the visit and for follow-up with them and/or the need for any referrals to a consulting specialist. The emergency department will also refer you to a specialist when appropriate. This referral assures that you have the opportunity for follow-up care with a specialist. All of these measure are taken in an effort to provide you with optimal care, which includes your follow-up. Under all circumstances we always encourage you to contact your private physician who remains a resource for coordinating your care. When calling for follow-up care, please make the office aware that this follow-up is from your recent emergency room visit. If for any reason you are refused follow-up, please contact the [facility] Emergency Department at and asked to speak to the emergency department charge nurse. If you do not have a primary care doctor, please follow up with the clinics below within 3-[address] [facility] - [facility] [address] [place] [id number] [facility] [address] [place] [address] Sepsis Event Note (ED) - Focused Exam Vital Signs: Vital Signs Temp Pulse Resp BP Pulse Ox 12/07/19 14:00 97.5 F 77 16 113/74 96 - My Orders Last 24 Hours: My Active Orders 12/07/19 15:23 Vaccines to be Administered [RC] PER UNIT ROUTINE 12/07/19 15:37 Communication Order [RC] STAT - Assessment/Plan Last 24 Hours: My Active Orders 12/07/19 15:23 Vaccines to be Administered [RC] PER UNIT ROUTINE 12/07/19 15:37 Communication Order [RC] STAT
[2019-12-07] MEDS ORDERED: Diphtheria,Pertussis(Acell),Tetanus Vaccine 0.5 ML Syringe IM ONE (15:23)
--- NOTE | 2019-12-07 15:37 | CR ---
Right foot: 3 views of the right foot were obtained. Comparison: No previous foot exam. Joint spaces are preserved. No fracture, dislocation or other bony abnormality is appreciated. Impression: 1. No abnormality is identified on right foot exam. Diagnostic code #1 This report was dictated in MDT
[2019-12-07 20:14] VITALS: BP 114/81; PULSE 82
== END 2019-12-07 16:16 | disposition home or self-care (01) ==
LOC: MW.ED 13:34
DX: S91.311A Laceration without foreign body, right foot, initial encounter (principal); F41.9 Anxiety disorder, unspecified; F32.9 Major depressive disorder, single episode, unspecified; Z88.1 Allergy status to other antibiotic agents; Z79.899 Other long term (current) drug therapy; Z23 Encounter for immunization; W26.8XXA Contact with other sharp object(s), not elsewhere classified, initial encounter
CPT/HCPCS: 12002; 73630-26-RT; 73630-RT; 90471; 90715; 99283-25